=== PATIENT | female | born 1975 | race African-American/Black ===

== ENCOUNTER 2016-04-24 09:38 | Emergency (ER) | payer OTHER ==
[~2016-04-24] VITALS: Wt 61.2 kg
[2016-04-24 10:44] LABS: BASO % 0.1 % (0.0-1.0); EOS # 0.1 10*3/uL (0.0-0.4); HEMATOCRIT 43.7 % (37.0-47.0); HEMOGLOBIN 14.8 g/dl (12.0-16.0); LYMPH # 1.7 10*3/uL (1.3-4.4); LYMPH % 19.4 % (27.0-41.0); MEAN CELL VOLUME 84.4 fl (81.0-99.0); MEAN CORPUSCULAR HGB 28.6 pg (27.0-31.0); MEAN CORPUSCULAR HGB CONC 33.9 g/dl (33.0-37.0); MEAN PLATELET VOLUME 9.2 fl (9.6-12.3); MONO % 10.8 % (3.0-9.0); NEUT % 68.5 % (47.0-73.0); PLATELET COUNT AUTOMATED 332 10*3/uL (130-400); RED BLOOD COUNT 5.18 10*6/uL (4.10-5.10); RED CELL DISTRI WIDTH 13.5 % (0-14.5); WHITE BLOOD COUNT 8.8 10*3/uL (4.8-10.8)
[2016-04-24 10:59] LABS: ALBUMIN 3.7 gm/dl (3.1-4.5); ALKALINE PHOSPHATASE 66 U/L (45-117); BILIRUBIN, TOTAL 0.7 mg/dl (0.2-1.0); BUN 11 mg/dl (7-24); CARBON DIOXIDE 23 mmol/L (21-32); CHLORIDE 108 mmol/L (98-107); EST GLOM FILT AFRICAN AMERICAN > 60 ml/min; GLUCOSE 83 mg/dL (65-99); SGOT/AST 12 IU/L (3-35); SGPT/ALT 30 U/L (12-78); SODIUM 141 mmol/L (136-145)
[2016-04-24] MEDS ORDERED: CEPHALEXIN500 M1 PO (11:53)
== END 2016-04-24 12:14 | disposition home or self-care (01) ==
LOC: ED 09:38
PROVIDERS: Registered Nurse
DX: L03.011 Cellulitis of right finger (principal); L02.511 Cutaneous abscess of right hand; I73.00 Raynaud's syndrome without gangrene; F17.200 Nicotine dependence, unspecified, uncomplicated

== ENCOUNTER → 2018-04-24 | Outpatient (CLI) | payer OTHER ==
[~2018-04-24] MED LIST: CEPHALEXIN500 M1 PO
[2018-04-24 10:04] LABS: BASO % 0.4 % (0.0-1.0); EOS # 0.2 10*3/uL (0.0-0.4); EOS % 2.7 % (1.0-4.0); HEMATOCRIT 42.2 % (37.0-47.0); HEMOGLOBIN 13.5 g/dl (12.0-16.0); LYMPH % 26.9 % (27.0-41.0); MEAN CELL VOLUME 86.3 fl (81.0-99.0); MEAN CORPUSCULAR HGB 27.6 pg (27.0-31.0); MEAN PLATELET VOLUME 10.2 fl (9.6-12.3); MONO # 0.5 10*3/uL (0.1-1.0); NEUT # 4.6 10*3/uL (2.3-7.9); NEUT % 62.7 % (47.0-73.0); PLATELET COUNT AUTOMATED 404 10*3/uL (130-400); RED BLOOD COUNT 4.89 10*6/uL (4.10-5.10); RED CELL DISTRI WIDTH 13.9 % (0-14.5); WHITE BLOOD COUNT 7.3 10*3/uL (4.8-10.8)
[2018-04-24 10:12] LABS: ALBUMIN 4.2 gm/dl (3.1-4.5); ALKALINE PHOSPHATASE 78 U/L (45-117); BUN 10 mg/dl (7-24); CHLORIDE 108 mmol/L (98-107); CHOLESTEROL 157 mg/dL (<200); CREATININE 0.53 mg/dL (0.55-1.02); HDL CHOLESTEROL 43 mg/dl (40-60); LDL CHOLESTEROL 93 mg/dL (9-159); SGOT/AST 19 IU/L (3-35); SGPT/ALT 16 U/L (12-78); SODIUM 139 mmol/L (136-145); TOTAL PROTEIN 9.6 gm/dL (6.4-8.2); TRIGLYCERIDES 103 mg/dl (<150); VLDL CHOLESTEROL 21 mg/dL (6-40)
[2018-04-24 10:17] LABS: THYROID STIM HORMONE (HS) 0.973 uIU/ml (0.358-4.75)
[2018-04-25 21:07] LABS: CCP ANTIBODIES IGG/IGA 33 units (0-19)
[2018-04-27 08:13] LABS: RHEUMATOID ARTHRITIS FACTOR <10.0 IU/mL (0.0-13.9)
== END | disposition home or self-care (01) ==
LOC: LAB 09:09
PROVIDERS: Nurse Practitioner Family
DX: M06.9 Rheumatoid arthritis, unspecified (principal); R63.4 Abnormal weight loss

== ENCOUNTER → 2018-05-27 | Outpatient (CLI) | payer OTHER | END | disposition home or self-care (01) | LOC: LAB 12:09 | DX: N92.1 Excessive and frequent menstruation with irregular cycle (principal) ==

== ENCOUNTER 2021-06-04 09:45 | Emergency (ER) | payer SELFPAY ==
[2021-06-04 12:44] LABS: BILIRUBIN Negative (Negative); BLOOD Negative (Negative); CLARITY Cloudy (Clear); COLOR Yellow (Yellow); GLUCOSE Negative (Negative); KETONE Negative (Negative); LEUKO ESTERASE 3+ (Negative); NITRITE Negative (Negative); PH 5.5 (4.5-8.0); SPECIFIC GRAVITY 1.015 (1.001-1.030)
[2021-06-04 13:39] LABS: BACTERIA 2+; WBC TNTC wbc/hpf (0-5)
[2021-06-04 13:53] LABS: BASO % 0.4 % (0.0-1.0); EOS # 0.1 10*3/uL (0.0-0.4); EOS % 0.7 % (1.0-4.0); LYMPH # 2.3 10*3/uL (1.3-4.4); LYMPH % 22.5 % (27.0-41.0); MEAN CELL VOLUME 82.3 fl (81.0-99.0); MEAN CORPUSCULAR HGB 28.4 pg (27.0-31.0); MEAN CORPUSCULAR HGB CONC 34.5 g/dl (33.0-37.0); MEAN PLATELET VOLUME 9.7 fl (9.6-12.3); MONO # 0.7 10*3/uL (0.1-1.0); MONO % 6.5 % (3.0-9.0); NEUT % 69.6 % (47.0-73.0); PLATELET COUNT AUTOMATED 372 10*3/uL (130-400); RED BLOOD COUNT 4.62 10*6/uL (4.10-5.10); RED CELL DISTRI WIDTH 14.6 % (0-14.5)
[2021-06-04 14:13] LABS: ALBUMIN 3.8 gm/dl (3.1-4.5); BUN 9 mg/dl (7-24); CHLORIDE 111 mmol/L (98-107); CREATININE 0.39 mg/dL (0.55-1.02); LIPASE 54 U/L (73-393); POTASSIUM 3.7 mmol/L (3.5-5.1); SGOT/AST 17 IU/L (3-35); SGPT/ALT 15 U/L (12-78); SODIUM 139 mmol/L (136-145); TOTAL PROTEIN 8.5 gm/dL (6.4-8.2)
[2021-06-04 14:14] LABS: ALKALINE PHOSPHATASE 82 U/L (45-117)
[2021-06-04] MEDS ORDERED: CITROMA296 ML PO (15:39)
[2021-06-04] MEDS ORDERED: SEPTDS PO (15:39)
== END 2021-06-04 17:02 | disposition home or self-care (01) ==
LOC: ED 09:45
PROVIDERS: Emergency Medicine; Physician Assistant
DX: M34.9 Systemic sclerosis, unspecified (principal); K59.00 Constipation, unspecified; N39.0 Urinary tract infection, site not specified; Z98.890 Other specified postprocedural states

== ENCOUNTER 2024-06-27 09:19 | Emergency (ER) | payer SELFPAY ==
[~2024-06-27] VITALS: Ht 167.6 cm; Wt 45.4 kg
[~2024-06-27 09:19] MED LIST changes: +CITROMA296 ML PO; +SEPTDS PO
[2024-06-27] MEDS ORDERED: Metoclopramide Hydrochloride 10 MG/2 ML VIAL IV ONE (09:50)
[2024-06-27] MEDS ORDERED: SODIUM CHLORIDE 0.9% 1,000 ML IV ONE (09:50)
[2024-06-27] MEDS ORDERED: FAMOTIDINE 50 ML IV ONE (09:50)
[2024-06-27] MEDS ORDERED: HYDROmorphone Hydrochloride 1 MG/ML SYR IV ONE (09:50)
[2024-06-27] MEDS ORDERED: Ketorolac Tromethamine 15 MG/ML VIAL IV ONE (09:50)
[2024-06-27] MEDS ORDERED: diphenhydrAMINE hydrochloride 50 MG/ML VIAL IV ONE (09:50)
[2024-06-27 10:24] LABS: BASO % 0.4 % (0.0-1.0); EOS # 0.1 10*3/uL (0.0-0.4); EOS % 1.9 % (1.0-4.0); HEMATOCRIT 44.5 % (37.0-47.0); MEAN CELL VOLUME 86.1 fl (81.0-99.0); MEAN CORPUSCULAR HGB 27.5 pg (27.0-31.0); MEAN CORPUSCULAR HGB CONC 31.9 g/dl (33.0-37.0); MEAN PLATELET VOLUME 9.5 fl (9.6-12.3); MONO # 0.4 10*3/uL (0.1-1.0); MONO % 5.4 % (3.0-9.0); NEUT # 4.9 10*3/uL (2.3-7.9); PLATELET COUNT AUTOMATED 400 10*3/uL (130-400); RED BLOOD COUNT 5.17 10*6/uL (4.10-5.10); RED CELL DISTRI WIDTH 14.4 % (0-14.5); WHITE BLOOD COUNT 7.2 10*3/uL (4.8-10.8)
[2024-06-27 10:49] LABS: ALKALINE PHOSPHATASE 95 U/L (46-116); BUN 9 mg/dl (9-23); CHLORIDE 107 mmol/L (98-107); LIPASE 36 U/L (12-53); POTASSIUM 3.9 mmol/L (3.4-5.1); SGPT/ALT 9 U/L (5-49); TOTAL PROTEIN 9.5 gm/dL (6.0-8.0)
[2024-06-27] MEDS ORDERED: Ondansetron4 MG PO (11:35)
[2024-06-27] MEDS ORDERED: DICYCLOMINE HYD20 MG PO (11:35)
== END 2024-06-27 17:24 | disposition home or self-care (01) ==
LOC: ED 09:19
PROVIDERS: Emergency Medicine
DX: K56.7 Ileus, unspecified (principal); R11.2 Nausea with vomiting, unspecified; R10.13 Epigastric pain; F17.200 Nicotine dependence, unspecified, uncomplicated; Z98.890 Other specified postprocedural states

== ENCOUNTER 2024-06-28 10:36 | Emergency (ER) | payer SELFPAY ==
[~2024-06-28] VITALS: Ht 167.6 cm; Wt 45.4 kg
[~2024-06-28 10:36] MED LIST changes: +DICYCLOMINE HYD20 MG PO; +Ondansetron4 MG PO
[2024-06-28] MEDS ORDERED: SODIUM CHLORIDE 0.9% 500 ML IV ONE (11:20)
[2024-06-28] MEDS ORDERED: Metoclopramide Hydrochloride 10 MG/2 ML VIAL IV ONE (11:25)
[2024-06-28] MEDS ORDERED: diphenhydrAMINE hydrochloride 50 MG/ML VIAL IV ONE (11:25)
[2024-06-28] MEDS ORDERED: Dicyclomine Hydrochloride 20 MG/10 ML OSYR PO STA (11:43)
[2024-06-28] MEDS ORDERED: MG-AL HYDROXIDE/SIMETICONE 30 ML UDC PO STA (11:43)
[2024-06-28] MEDS ORDERED: Lidocaine Hydrochloride 15 ML UDC PO STA (11:43)
== END 2024-06-28 11:46 | disposition left against medical advice (07) ==
LOC: ED 10:36
DX: R10.9 Unspecified abdominal pain (principal); F17.200 Nicotine dependence, unspecified, uncomplicated; Z53.29 Procedure and treatment not carried out because of patient's decision for other reasons; Z98.890 Other specified postprocedural states

== ENCOUNTER 2024-12-24 08:59 | Emergency (ER) | payer OTHER ==
[~2024-12-24] VITALS: Ht 167.6 cm; Wt 46.3 kg
== END 2024-12-24 11:09 | disposition home or self-care (01) ==
LOC: ED 08:59
DX: S20.211A Contusion of right front wall of thorax, initial encounter (principal); Z98.890 Other specified postprocedural states; W18.2XXA Fall in (into) shower or empty bathtub, initial encounter; Y93.89 Activity, other specified; Y92.89 Other specified places as the place of occurrence of the external cause; Y99.8 Other external cause status